=== PATIENT | male | born 1985 | race Caucasian/White ===

== ENCOUNTER 2023-07-31 06:14 | Day surgery (SDC) | payer OTHER, SELFPAY ==
[2023-07-31 06:13] VITALS: BMI 26.5
[2023-07-31 06:21] VITALS: BP 135/86
[2023-07-31] MEDS: NORMOSOL-R 1000 IV (06:42)
[2023-07-31] MEDS: TYLENOL 1000 MG PO (06:42)
[2023-07-31 06:44] VITALS: BMI 26.5
--- NOTE | 2023-07-31 07:34 | W.SUR.PREOP ---
Pre-Operative Surgical Note
-
I have examined this patient prior to the performance of the scheduled procedure.
The patient's condition is unchanged from the time of the current History and
Physical and the patient is able to undergo the scheduled procedure.
--- NOTE | 2023-07-31 08:38 | W.IMMPOSTOP ---
Surgical Immed Post Op Note
-
Primary Surgeon: Quique Williamson MD
Assisting Surgeon: None
Pre-op Diagnosis: Left shoulder mass
Post-op Diagnosis: Left shoulder lipoma
Procedure Performed: Excision of left shoulder lipoma
Anesthesia Type: General
Specimen / Cultures: Left shoulder lipoma
Estimated Blood Loss: 7 cc
Complications: None
Operative Findings: 8 x 4 x 1 cm encapsulated lipoma in the left shoulder anterior to the deltoid.
[2023-07-31 08:39] VITALS: BP 107/66
--- NOTE | 2023-07-31 08:40 | OR.RPT ---
Operative Report
Operative Report
Patient Name: Nader Gordon
: 1985
Date of Operation: 07/31/2023
Pre-op Diagnosis: Left shoulder mass
Post-op Diagnosis: Left shoulder lipoma
Procedure Performed: Excision of left shoulder lipoma
Surgeon(s):
Dr. Williamson
Bioengineer(s):
OWEN Norton
Anesthesia: MAC
Estimated Blood Loss: 7 cc
Urine Output: None
Drains/Lines/Implants: None
Specimen / Cultures: Left shoulder lipoma
Complications: None
Indication for surgery:
This is a 38-year-old male with a lump on his left shoulder that has been growing over the past year. After evaluation in the office he was diagnosed with a left shoulder mass, likely a lipoma. After discussion of risk benefits and alternatives he
elected and was consented for surgery.
Operative Findings: 8 x 4 x 1 cm encapsulated lipoma in the left shoulder anterior to the deltoid.
Details of the operation:
The patient was brought to the operating room a placed in the supine position with a bump under the left shoulder. After appropriate sedation by anesthesia, the area of the left shoulder was prepped and draped in the usual fashion. The field was
infiltrated with 10 cc of local anesthetic. A linear incision over a natural skin line was made over the mass and carried down through the subcutaneous tissue. The lipoma was freed circumferentially taking care not to come across the many
interdigitating extensions that it had. We did not violate the underlying muscle fascia. The specimen which measured roughly 8 x 4 x 1cm was passed off the field. The cavity was irrigated and hemostasis was achieved. The space was closed with
interrupted 3-0 Vicryl sutures, followed by a running 4-0 Monocryl and then Dermabond. All counts were correct at the end of procedure. The patient was then transferred to the PACU for recovery.
I was the attending physician and performed the procedure with assistance from the MARINA student above. I was present for all portions of the case
Quique Williamson MD
[2023-07-31 08:45] VITALS: BP 114/65
[2023-07-31 08:56] VITALS: BP 99/68
[2023-07-31 09:00] VITALS: BP 99/83
[2023-07-31 09:12] VITALS: BP 100/65
== END 2023-07-31 09:30 | disposition home or self-care (01) ==
LOC: SDS 06:14
PROVIDERS: ATTENDING PHYSICIAN Surgery
DX: D17.22 Benign lipomatous neoplasm of skin and subcutaneous tissue of left arm (principal)
CPT/HCPCS: 11406; 12034; 88304

== ENCOUNTER 2024-04-14 12:35 | Emergency (ER) | payer OTHER, SELFPAY ==
[2024-04-14 12:38] VITALS: BP 154/117
--- NOTE | 2024-04-14 14:53 | ED.GENMED ---
History of Present Illness
General
Chief Complaint: Back Pain
Source: patient
Time Seen by Provider: 04/14/24 14:37
History of Present Illness
History of Present Illness:
39-year-old male with past medical history of ADHD, bipolar disorder, previous TBI presenting to the ER for evaluation after he sustained a T8 vertebral body compression fracture and spinous process fracture this past Sunday and a snowboarding
injury, went to [facility] at that time and was discharged from the ER with prescription for tramadol and gabapentin, given a TLSO brace and was advised to follow back up with them in a few weeks for repeat imaging and monitoring of the
fracture. Patient states that he completed the course of tramadol and is still having pain and has no further follow-up other than the after mentioned 6 weeks from his discharge patient denies any new symptoms, shortness of breath, bowel or urinary
incontinence, saddle anesthesias and notes that he has been able to ambulate without any problems.
Past History
Past History
ED Past Medical History: Other (Traumatic brain injury)
ED Past Surgical History: Other (Tracheostomy (removed), ventriculostomy, G-tube (removed))
Social History
Tobacco: Smoker
Alcohol: Occasional
Drug: Former user (Formely used cocaine) and Marijuana
Personal: Single
Living: with family
Employment: Employed
Family History
Family History: Negative Early CAD
Review of Systems
Review of Systems
All Other Systems: ROS reviewed and negative except as documented in HPI and ROS
Phy Exam
Physical Exam
Physical Exam:
GENERAL: Alert , in no apparent distress, TLSO brace intact
EYE: conjunctiva clear
Head: Normocephalic atraumatic
NECK: Supple,
ENT: mmm.
LUNGS: no acute respiratory distress
NEUROLOGICAL: Alert and oriented, ambulates with steady gait
SKIN: Warm and dry, skin intact.
MUSCULOSKELETAL: well perfused.
PSYCH: Normal and appropriate interaction.
Scores
Heart Failure Risk
Heart Failure Risk Score: Not Applicable
Heart Score for Chest Pain Patients
STEMI patient?: Not applicable
Withdrawal Assessment of Alcohol
Withdrawal Assessment Completed?: Not applicable
Course
Vital Signs
Initial and Last Documented VS:
Initial Vital Signs
Temp Pulse Resp BP Pulse Ox
98.2 F 111 18 154/117 97
04/14/24 12:38 04/14/24 12:38 04/14/24 12:38 04/14/24 12:38 04/14/24 12:38
Last Documented Vital Signs
Temp Pulse Resp BP Pulse Ox
98.2 F 110 19 145/98 99
04/14/24 12:38 04/14/24 15:15 04/14/24 15:15 04/14/24 15:15 04/14/24 15:15
MDM/Problems Addressed
Differential Diagnosis Includes:
Back pain secondary to recent fracture, no symptoms to suggest infectious etiology, no signs of neurogenic claudication
MDM/Problems Addressed:
39-year-old male presenting to the ER for evaluation due to worsening back pain, recently diagnosed with T8 compression and spinous process fracture. Completed tramadol that was prescribed to him by the emergency department at [facility].
Patient notes that he will likely have a difficult time following up with [facility] as he does not live in that area and lives more locally. Advised patient that I will provide him with information for pain management and orthopedics as he will
need to follow-up with them for close monitoring. Will notify pain management in order to help expedite follow-up. [place] PDMP was reviewed without any prescriptive abnormalities. Will prescribe patient further pain control for home use as needed.
Anticipate discharge home.
*Pulse Oximetry
Patient hypoxic: no
*Critical Care Note
Total Time (30-74mins, 75-104mins- exclusive of procedures): Not Applicable
Patient Management
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
Escalation/DeEscalation of care consider admission/obs:
Spoke with pain management via [place] text who took patient's information and will ensure close follow-up with them as an outpatient.
ED Attending Note
-
Portions of this chart may have been created with voice recognition software.� Occasional wrong word or��sound alike� substitutions may have occurred due to the inherent limitations of voice recognition software.
Discharge Plan
Departure
Patient Disposition: Home (Routine Discharge)
Date of Disposition: 04/14/24
Time of Disposition: 14:53
Patient with high blood pressure during this ER visit?: Yes
Discharge Problem:
Closed T8 spinal fracture
Instructions: Vertebral compression fracture
Prescriptions:
New
oxycodone 5 mg tablet
5 mg PO BID PRN (Reason: Pain) Qty: 10 0RF
No Action
multivitamin Tablet
1 tab PO DAILY
escitalopram oxalate [Lexapro] 10 mg Tablet
10 mg PO DAILY
acetaminophen [acetaminophen] 325 mg tablet
650 mg PO Q6HPRN PRN (Reason: mild pain) Qty: 14 0RF
ibuprofen 600 mg tablet
600 mg PO Q6H PRN (Reason: pain) Qty: 14 0RF
Referrals:
Eliazar Ponce MD [Active] - (Pain Management)
Mj Curry MD [Active] - (Orthopedist - Call for appointment)
Neil Dodd DO [Family Provider] -
Interventions
Interventions:
*Risk Screen - Suicide Last Done: 04/14/24 13:57
*Neglect/Abuse Screening Last Done: 04/14/24 13:57
ED- Fall Risk Assessment Last Done: 04/14/24 13:57
*ED COVID-19 Vaccine History Last Done: 04/14/24 13:57
*Nursing Disposition Last Done: 04/14/24 15:15
ED-Musculoskeletal Assessment Last Done: 04/14/24 13:57
Discharge Date and Time
Discharge Date/Time: 04/14/24 15:15
Print Language: AMHARIC
[2024-04-14 15:15] VITALS: BP 145/98
== END 2024-04-14 15:15 | disposition home or self-care (01) ==
LOC: EMR 12:35
PROVIDERS: EMERGENCY PHYSICIAN Emergency Medicine; FAMILY PHYSICIAN Family Medicine
DX: S22.069A Unspecified fracture of T7-T8 vertebra, initial encounter for closed fracture (principal); X58.XXXA Exposure to other specified factors, initial encounter; R03.0 Elevated blood-pressure reading, without diagnosis of hypertension; F17.200 Nicotine dependence, unspecified, uncomplicated; F31.9 Bipolar disorder, unspecified; Z87.820 Personal history of traumatic brain injury
CPT/HCPCS: 99283